=== PATIENT | male | born 1960 | race Caucasian/White ===

== ENCOUNTER → 2017-12-06 | Outpatient (CLI) | payer OTHER ==
--- NOTE | 2017-12-06 16:30 | RAD ---
CHEST PA LATERAL History: cough times 1 month, shortness of air Comparison: None. Findings: 2 views of the chest are submitted. There is no infiltrate, pneumothorax, or effusion. The cardiac silhouette is within normal limits in size. There is tortuous thoracic aorta. Impression: 1. There is no significant infiltrate. Electronically signed by: Eluid Barakat MD (12/06/2017 4:27 PM) [id number]
== END | disposition home or self-care (01) ==
LOC: DXRAD 15:55
PROVIDERS: ATTEND Neuromusculoskeletal Medicine & OMM
DX: R06.02 Shortness of breath (principal); R05 Cough
CPT/HCPCS: 71046

== ENCOUNTER 2018-03-02 07:57 | Emergency (ER) | payer OTHER ==
[~2018-03-02] VITALS: Ht 162.6 cm; Wt 82.3 kg
[2018-03-02] MEDS ORDERED: IV NORMAL SALINE 1,000ML 1,000 ML IV ONE (08:15)
--- NOTE | 2018-03-02 08:29 | PHYS DOC ---
Past History Past Medical History: Bronchitis Past Surgical History: No Surgical History Alcohol Use: Occasionally Drug Use: None Adult General Chief Complaint Chief Complaint: DIARRHEA HPI HPI 4-year-old male presents with 3 day history of diarrhea. The patient has been battling a bronchitis diagnosis for the last 3 months. He has been on 2 rounds of antibiotics and at least 2 rounds of steroids. He is currently on antihistamines and Pulmicort. The last 3 days, the patient has had diarrhea. He states that it is nonbloody. He presents today because it seems to be getting worse. If he eats anything he feels like he has diarrhea. He also has nausea at this time. He has not had vomiting. He has generalized body aches and fatigue. No reported fever at home. Review of Systems Review of Systems Constitutional: Denies fever or chills [] Eyes: Denies change in visual acuity, redness, or eye pain [] HENT: Denies nasal congestion or sore throat [] Respiratory: cough with some shortness of breath [] Cardiovascular: No additional information not addressed in HPI [] GI: Denies abdominal pain. Nausea and diarrhea [] : Denies dysuria or hematuria [] Musculoskeletal: Denies back pain or joint pain [] Integument: Denies rash or skin lesions [] Neurologic: Denies headache, focal weakness or sensory changes [] Endocrine: Denies polyuria or polydipsia [] All other systems were reviewed and found to be within normal limits, except as documented in this note. Current Medications Current Medications Current Medications Medications (Trade) Dose Ordered Sig/[facility] Start Time Stop Time Status Last Admin Dose Admin Ondansetron HCl (Zofran) 4 mg 1X ONCE 03/02/18 08:30 03/02/18 08:31 UNV Sodium Chloride 1,000 ml @ 1,000 mls/hr 1X ONCE 03/02/18 08:15 03/02/18 09:14 Allergies Allergies Allergies Coded Allergies Type Severity Reaction Last Updated Verified No Known Drug Allergies 03/02/18 No Physical Exam Physical Exam Constitutional: Well developed, well nourished, no acute distress, non-toxic appearance. [] HENT: Normocephalic, atraumatic, bilateral external ears normal, oropharynx moist, no oral exudates, nose normal. [] Eyes: PERRLA, EOMI, conjunctiva normal, no discharge. [] Neck: Normal range of motion, no tenderness, supple, no stridor. [] Cardiovascular:Heart rate regular rhythm, no murmur [] Lungs & Thorax: Bilateral breath sounds clear to auscultation [] Abdomen: Bowel sounds normal, soft, no tenderness, no masses, no pulsatile masses. [] Skin: Warm, dry, no erythema, no rash. [] Back: No tenderness, no CVA tenderness. [] Extremities: No tenderness, no cyanosis, no clubbing, ROM intact, no edema. [] Neurologic: Alert and oriented X 3, normal motor function, normal sensory function, no focal deficits noted. [] Psychologic: Affect normal, judgement normal, mood normal. [] Current Patient Data Vital Signs Vital Signs Date Time Temp Pulse Resp B/P (MAP) Pulse Ox O2 Delivery O2 Flow Rate FiO2 03/02/18 08:00 97.8 85 20 95 Room Air EKG EKG [] Radiology/Procedures Radiology/Procedures [] Impressions: Two-view chest 03/02/2018 CLINICAL INDICATION: Cough for one week. COMPARISON: Chest 12/06/2017 FINDINGS: No pleural effusion, pneumothorax or focal consolidation. There are symmetric nodular opacities of the lower lungs not redemonstrated on the lateral view and most consistent with nipple shadow. Cardiac and mediastinal silhouettes unremarkable. IMPRESSION: No acute cardiopulmonary abnormality. Electronically signed by: Zina Nelson MD (03/02/2018 8:43 AM) [facility] DICTATED AND SIGNED BY: ZINA NELSON MD DATE: 03/02/18 0842 CC: KIKA MORFIN DO; HENRY COOK MD Course & Med Decision Making Course & Med Decision Making Pertinent Labs and Imaging studies reviewed. (See chart for details) The patient's chest x-ray does not show any acute findings. Labs are unremarkable except for slightly elevated white count of 12.6. I have given him Zofran and a liter of normal saline. The patient had an episode of vomiting after the 4 mg of Zofran. I will give him 4 more by IV. The patient was able to keep down fluids after a total of 8 mg of Zofran. He is feeling better after his normal saline. He appears to be coming down with viral gastroenteritis and a cough. I will discharge him with Tessalon Perles and Zofran. He is stable for discharge at this time. [] Dragon Disclaimer Dragon Disclaimer This electronic medical record was generated, in whole or in part, using a voice recognition dictation system. Departure Departure: Referrals: HENRY COOK MD (PCP) Scripts Benzonatate (TESSALON PERLE) 100 Mg Capsule 1 CAP PO TID for cough, #21 CAP Prov: KIKA MORFIN DO 03/02/18 KIKA MORFIN DO Mar 02, 2018 08:29
[2018-03-02] MEDS ORDERED: ONDANSETRON PF 4 MG/2 ML VIAL. IV ONE ×2 (08:30→09:15)
[2018-03-02 08:37] LABS: BASO # 0.1 x10^3/uL (0.0-0.2); BASO % 1 % (0-3); EOS % 0 % (0-3); HEMATOCRIT 44.4 % (39.0-53.0); LYMPH # 1.1 x10^3/uL (1.0-4.8); LYMPH % 8 % (24-48); MEAN CORPUSCULAR HEMOGLOBIN 30 pg (25-35); MEAN CORPUSCULAR HGB CONC 34 g/dL (31-37); MEAN CORPUSCULAR VOLUME 89 fL (79-100); MONO % 8 % (0-9); NEUT # 10.5 x10^3uL (1.8-7.7); NEUT % 83 % (31-73); PLATELET COUNT 252 x10^3/uL (140-400); RED BLOOD COUNT 4.97 x10^6/uL (4.30-5.70); RED CELL DISTRIBUTION WIDTH 14.5 % (11.5-14.5); WHITE BLOOD COUNT 12.6 x10^3/uL (4.0-11.0)
--- NOTE | 2018-03-02 08:46 | RAD ---
Two-view chest 03/02/2018 CLINICAL INDICATION: Cough for one week. COMPARISON: Chest 12/06/2017 FINDINGS: No pleural effusion, pneumothorax or focal consolidation. There are symmetric nodular opacities of the lower lungs not redemonstrated on the lateral view and most consistent with nipple shadow. Cardiac and mediastinal silhouettes unremarkable. IMPRESSION: No acute cardiopulmonary abnormality. Electronically signed by: Fercho Nelson MD (03/02/2018 8:43 AM) [facility]
[2018-03-02 08:50] LABS: ALBUMIN 3.3 g/dL (3.4-5.0); ALBUMIN/GLOBULIN RATIO 0.8 (1.0-1.7); CALCIUM 8.7 mg/dL (8.5-10.1); CREATININE 0.9 mg/dL (0.7-1.3); GFR 86.1; POTASSIUM 3.7 mmol/L (3.5-5.1); TOTAL BILIRUBIN 0.8 mg/dL (0.2-1.0); TOTAL PROTEIN 7.3 g/dL (6.4-8.2)
[2018-03-02] MEDS ORDERED: BENZONATATE 100 MG CAPSULE. PO ONE ×2 (09:07→09:15)
[2018-03-02] MEDS ORDERED: BENZ100C PO (09:52)
[2018-03-02 10:02] VITALS: BP 136/64
== END 2018-03-02 10:10 | disposition home or self-care (01) ==
LOC: ER 07:57
DX: R19.7 Diarrhea, unspecified (principal); R11.2 Nausea with vomiting, unspecified; D72.829 Elevated white blood cell count, unspecified; M79.10 Myalgia, unspecified site
CPT/HCPCS: 36415; 71046; 80053; 85025; 96361; 96374; 96376; 99284; J2405; J7030

== ENCOUNTER → 2018-03-08 | Outpatient (CLI) | payer OTHER ==
[2018-03-02 10:02] VITALS: BP 136/64
[~2018-03-08] MED LIST: BENZ100C PO
--- NOTE | 2018-03-08 10:31 | RAD ---
EXAM: Maxillofacial bone CT without contrast. HISTORY: Sinusitis. TECHNIQUE: Computed tomographic images of the paranasal sinuses were obtained without contrast. *One or more of the following individualized dose reduction techniques were utilized for this examination: 1. Automated exposure control. 2. Adjustment of the mA and/or kV according to patient size. 3. Use of iterative reconstruction technique. COMPARISON: None. FINDINGS: There is complete opacification of the left maxillary sinus and near complete opacification of the right maxillary sinus with a moderate to large right maxillary sinus air-fluid level. There is severe mucosal thickening involving the bilateral ethmoid sinuses. There is moderate mucosal thickening involving the sphenoid sinus. The frontal sinuses clear. There is obstruction of the ostiomeatal units. There is minimal leftward nasal septal deviation. The mastoid air cells are clear. The orbits are unremarkable. The visualized portions of the brain demonstrate mild cerebral volume loss with compensatory enlargement of the ventricles. There is no mass effect or midline shift. No calvarial lesion is seen. IMPRESSION: Severe left greater than right maxillary and ethmoid sinus and moderate sphenoid sinus disease with obstruction of the ostiomeatal units. Electronically signed by: Danae Armenta MD (03/08/2018 10:27 AM) [id number]
== END | disposition home or self-care (01) ==
LOC: CT 09:43
PROVIDERS: ATTEND Physician Assistant Medical
DX: J32.9 Chronic sinusitis, unspecified (principal); J34.2 Deviated nasal septum; J34.89 Other specified disorders of nose and nasal sinuses
CPT/HCPCS: 70486

== ENCOUNTER → 2018-05-21 | Outpatient (CLI) | payer OTHER ==
--- NOTE | 2018-05-21 12:01 | RAD ---
CT study of the maxillofacial bones without contrast i.e. paranasal sinuses Clinical indications: Sinusitis. COMPARISON: March 08, 2018. TECHNIQUE: Noncontrast helical CT scanning of the paranasal sinuses was performed. FINDINGS: There is almost complete opacification of the right maxillary sinus. Therefore, there has been no significant change from the prior study. The previously seen complete opacification of the left maxillary sinus has resolved. There is mild residual mucosal thickening of the floor of the left maxillary sinus. There is persistent opacification of the infundibular canal on the right side. The opacification of the infundibular canal on the left side has resolved. There is mild mucosal thickening of both ethmoid sinuses which has significantly improved. There is mild mucosal thickening of the left lateral recess of the left sphenoid sinus. This has improved. The frontal sinuses are relatively clear. No air-fluid levels are seen. No lytic process is seen. The middle ear cavities and mastoid sinuses are clear. There is moderate mucosal thickening of the middle and inferior turbinates on the right side and mild mucosal thickening of the middle and inferior turbinates on the left side. There is mild nasal septal deviation with the convexity pointed towards the left side. The adenoids are not abnormally thickened. No prominent polyp or soft tissue mass is present within the nasal passageway. IMPRESSION: Significant improvement in left maxillary sinusitis and bilateral ethmoid sinusitis and left sphenoid sinusitis seen previously. There is still significant persistent right maxillary sinusitis with almost complete opacification of the right maxillary sinus. Electronically signed by: Ramesh Ferris MD (05/21/2018 11:58 AM) [id number]
== END | disposition home or self-care (01) ==
LOC: CT 09:46
PROVIDERS: ATTEND Otolaryngology
DX: J32.4 Chronic pansinusitis (principal); J34.2 Deviated nasal septum
CPT/HCPCS: 70486